=== PATIENT | male | born 1945 | race Caucasian/White ===

== ENCOUNTER 2017-02-25 09:09 | Day surgery (SDC) | payer MEDICARE, OTHER ==
[~2017-02-25] VITALS: Ht 160 cm; Wt 69.2 kg
[2017-02-25 09:35] VITALS: Ht 160 cm; Wt 69.2 kg
[2017-02-25] MEDS ORDERED: PROPOFOL 60 ML ONE (09:54)
[2017-02-25] MEDS ORDERED: LIDOCAINE 2% (SDV) 5 ML INJ ONE (09:54)
[2017-02-25] MEDS ORDERED: DIABETES MED (09:57)
[2017-02-25] MEDS ORDERED: BP MEDS (09:57)
[2017-02-25 09:59] VITALS: BP 185/90; PULSE 77; RESP 9
--- NOTE | 2017-02-25 10:29 | OPPN ---
Date/Time of Note Date/Time of Note DATE: 02/25/17 TIME: 10:28 Operative Report Preoperative Diagnosis Positive occult blood in stool Screening colonoscopy Postoperative Diagnosis Internal hemorrhoids No colon neoplasm was identified Operation/Procedure Performed Colonoscopy Surgeon see signature line camp assistant None Anesthesia: MAC Estimated blood loss: none Transfusion Required none Specimen None Grafts/Implants none Complications none MARY PUENTE MD Feb 25, 2017 10:29
[2017-02-25 10:56] VITALS: BP 161/88; RESP 14
--- NOTE | 2017-02-25 11:31 | GILP ---
DATE OF PROCEDURE: 02/25/2017 PROCEDURE PERFORMED: Colonoscopy. SURGEON: Jennifer Barrios MD. PREOPERATIVE DIAGNOSIS: 1. Screening colonoscopy. 2. Positive occult blood in stool. POSTOPERATIVE DIAGNOSES: 1. Colonoscopy all the way to the cecum. 2. Internal hemorrhoids. 3. No colon neoplasm was identified. INDICATION: Mr. Henok Styles is a 71-year-old male patient who was noted to have positive occult blood in stool. He has never had a screening colonoscopy. The procedure and possible complications were well explained to the patient. The patient understood and consented to the procedure. DESCRIPTION OF PROCEDURE: Under influence of anesthesia, the colonoscope was carefully introduced in the rectum. Under direct vision, it was advanced all the way to the cecum. FINDINGS: The patient had internal hemorrhoids. No colon neoplasm was identified. He tolerated the procedure very well. There were no complications from the procedure. At the end of procedure, he was awake with stable vital signs. He was discharged home in care of his family. IMPRESSION: 1. Colonoscopy all the way to the cecum. 2. Internal hemorrhoids. 3. No colon neoplasm was identified. PLAN: Next screening colonoscopy in 10 years. Dictated By: MD PHILLIP Jarvis/[email or web address] /Document#: [id number]
== END 2017-02-25 11:24 | disposition home or self-care (01) ==
LOC: GIL 09:09
PROVIDERS: ATTEND Internal Medicine Gastroenterology
DX: Z12.11 Encounter for screening for malignant neoplasm of colon (principal); K64.8 Other hemorrhoids; E11.9 Type 2 diabetes mellitus without complications; I10 Essential (primary) hypertension
CPT/HCPCS: 82962